=== PATIENT | male | born 1950 ===

== ENCOUNTER 2018-01-13 06:48 | Day surgery (SDC) | payer MEDICARE ==
--- NOTE | 2018-01-11 20:43 | HP ---
CC: Dr. Ruiz * HISTORY AND PHYSICAL: DATE OF PLANNED ADMISSION AND SURGERY: 01/13/18 HISTORY OF PRESENT ILLNESS: Mr. Schwartz is a 67-year-old white male who is admitted with distal left ureteral calculus for cystoscopy, left ureteroscopy, laser lithotripsy, and left ureteral stent insertion. Mr. Schwartz had past history of renal calculus disease and back in 1999, he required a left ureteroscopy and laser lithotripsy for a 7 mm proximal ureteral calculus. He was doing fine until about 6 weeks ago, when he presented to the emergency room in [place] with symptoms of left renal colic. He was noted on CT to have a 7 mm calculus at the left ureteropelvic junction. He was taken to the operating room where he underwent a left ureteroscopy, laser lithotripsy, and ureteral stent placement. The stent was removed 3 weeks later. He presented back to the emergency room at [place] with symptoms of left renal colic and had a CT, which showed a 4 mm calculus in the distal left ureter associated with moderate hydronephrosis. He was advised admission, however, the patient preferred to manage conservatively. He presented to my office last week, where he had a renal ultrasound which showed moderate left hydronephrosis and hydroureter and there was a 4 mm calculus still in the distal left ureter. Conservative management was continued. The pain kept recurring; however, it was manageable. The patient; however, was feeling very tired from the condition. He was again evaluated in my office this week and left renal ultrasound continued to show moderate left hydronephrosis and hydroureter and the stone was still in the same location in the distal left ureter. Because of the length of time the stone has been in the same location, the persistent moderate hydronephrosis and especially the feeling of fatigue that the patient has been having and after discussing the options, the patient wants to proceed with endoscopic stone extraction. PAST MEDICAL HISTORY AND SYSTEM REVIEW: He is generally healthy. He is hypertensive and maintained on lisinopril 20 mg daily. MEDICATIONS: He is on no other chronic medications. ALLERGIES: He reports being allergic to SULFA drugs that gives him hives. He denies any cardiac or pulmonary diseases or symptoms. 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 PHYSICAL EXAMINATION GENERAL: Pleasant, healthy and fit-looking white male. VITAL SIGNS: Blood pressure 120/80, pulse of 80. HEART: Regular and rhythmic. No murmurs. LUNGS: Clear. ABDOMEN: Soft. No masses, no tenderness. There is mild left CVA tenderness. IMPRESSION: Persistent 4 mm distal left ureteral calculus with hydronephrosis and on and off episodes of left flank pain. PLAN: Considering the duration of time the stone has been in the same location and the associated symptoms, plan is for left ureteroscopy, laser lithotripsy and left ureteral stent placement. I discussed the above plans with the patient. All his questions were answered. [id number]/CPS #: [id number] SHANELLE
[~2018-01-13 06:48] MED LIST: Buffered Lidocaine 0.9% SYRIN* 5 ML/SYR SYRINGE INTRADERM ONE
[2018-01-13] MEDS ORDERED: cefTRIAXone(*) 2 GM ADDV.VIAL IVPB ONE (07:18)
[2018-01-13] MEDS ORDERED: Iohexol 180 (CONTRAST) 10 ML SDV IV ONE (08:15)
[2018-01-13] MEDS ORDERED: fentaNYL* 50 MCG/ML 2 ML VIAL (100 MCG VIAL) ONE (08:34)
[2018-01-13] MEDS ORDERED: Naloxone* 0.4 MG/ML 1 ML VIAL IV PRN (09:02)
[2018-01-13] MEDS ORDERED: Acetaminophen TAB* 325 MG PO PRN (09:02)
[2018-01-13] MEDS ORDERED: fentaNYL* 50 MCG/ML 2 ML VIAL (100 MCG VIAL) IV PRN (09:02)
[2018-01-13] MEDS ORDERED: Lidocaine 2% PF * 5 ML VIAL ONE (09:14)
[2018-01-13] MEDS ORDERED: Propofol* 10 MG/ML 20 ML BTL IV PUSH ONE (09:14)
[2018-01-13 10:08] VITALS: BP 161/91
--- NOTE | 2018-01-13 10:09 | RAD ---
INDICATION: Left ureteral stent insertion COMPARISONS: September 13, 2005 TECHNIQUE: Fluoroscopy was provided for a retrograde pyelogram and stent placement. Total fluoroscopy time is: 12 seconds FINDINGS: Contrast is noted within the renal collecting system which is mildly dilated. A left ureteral stent is noted. IMPRESSION: FLUOROSCOPY WAS PROVIDED FOR A RETROGRADE PYELOGRAM AND STENT PLACEMENT CPT II Codes: G9500
--- NOTE | 2018-01-13 11:37 | OP ---
CC: Dr. Ruiz OPERATIVE REPORT: DATE OF OPERATION: 01/13/18 DATE OF : 50 SURGEON: Arnoldo Goodwin MD ANESTHESIOLOGIST: Dr. Julius Hunter ANESTHESIA: General. PRE-OP DIAGNOSES: 1. Distal left ureteral calculus. 2. Left hydronephrosis due to distal left ureteral calculus. POST-OP DIAGNOSES: 1. Impacted distal left ureteral stone fragments. 2. Left hydronephrosis due to impacted distal left ureteral stone fragments. OPERATIVE PROCEDURE: 1. Cystoscopy. 2. Left ureteroscopy and pyeloscopy. 3. Extraction of distal left ureteral stone fragments. 4. Left retrograde pyelography and placement of left ureteral stent (6-Monegasque). INDICATION FOR PROCEDURE: Mr. Schwartz is a 67-year-old white male who underwent a left ureteroscopy and laser lithotripsy of an impacted 7-mm calculus at the ureteropelvic junction in [place] about 6 weeks ago. Following removal of the stent 3 weeks later, he developed left renal colic and was noted to have a 4-mm calculus in the distal left ureter associated with hydronephrosis. He was managed conservatively; however, he continued to be symptomatic. Renal and full bladder ultrasound continued to show moderate left hydronephrosis and a 4-mm stone in the distal left ureter. Because of the above history and findings, the patient is admitted for the above procedure. PATHOLOGY AT CYSTOSCOPY: The penile and bulbar urethrae looked normal. The prostatic urethra measured 3 cm in length and there was moderate degree of obstruction by prostate enlargement with a prominent median lobe. The prostatic urethra was vascular and bled easily to instrumentation. Examination of the bladder showed moderate diffuse trabeculations. No suspicious bladder lesions were seen. The ureteral orifices looked normal. Upon left ureteroscopy, multiple stone fragments measuring between 1 and 2 mm were noted in the distal ureter. They were impacted. There was a significant degree of edema of the adjacent ureteral mucosa. The ureter proximal to the calculi was dilated. No other calculi were seen in the ureter or in the renal pelvis. Left retrograde pyelography showed moderate left hydroureteronephrosis. DESCRIPTION OF PROCEDURE: After successful general anesthesia, the patient was placed in the lithotomy position and was prepped and draped for a cystoscopy. Cystoscopy was performed, the bladder was inspected, and the above findings were noted. A flexible-tip guidewire was then introduced into the left orifice. There was initial resistance to the introduction of the wire in the distal ureter at the level of the stone. Following introduction of the wire into the renal pelvis, there was a gush of concentrated-looking urine. A 6.5 Fr semirigid tapered ureteroscope was then introduced inside the bladder. A flexible-tip spiral basket was introduced through the port of the ureteroscope and the flexible tip was introduced into the left ureter alongside the guidewire. That allowed the atraumatic introduction of the ureteroscope into the ureter. Slight narrowing was noted just distal to the calculus and that was easily negotiated with ureteroscope. The stone fragments were then visualized. They were manipulated and they were then extracted with the basket. The ureteroscope was then introduced all the way into the proximal ureter and into the renal pelvis and no additional stone fragments were noted. After a final inspection, which showed no evidence of ureteral injury and no residual stone fragments, the ureteroscope was removed. The cystoscope was re- introduced over the guidewire. Retrograde pyelography was performed. A size 6 - Monegasque stent was then placed with the proximal end-coiling in renal pelvis and the distal end-coiling inside the bladder. There was good drainage of contrast from the kidney and no extravasation. The bladder was then irrigated and the stone fragments were evacuated and sent for stone analysis. The cystoscope was then removed. A size 16-Monegasque Hwang catheter was passed inside the bladder. Rectal examination was then performed showing an enlarged but non-suspicious prostate. The patient tolerated the procedure well and left the operating room in good condition. The plan is to keep the stent in place for 1 week, it will be removed in the office under local anesthesia. [id number]/[facility] #: [id number] [facility] NYACK HOSPITALLeticia
== END 2018-01-13 10:40 | disposition home or self-care (01) ==
LOC: OR 06:48
PROVIDERS: ATTEND Urology
DX: N13.2 Hydronephrosis with renal and ureteral calculous obstruction (principal); I10 Essential (primary) hypertension; N40.0 Benign prostatic hyperplasia without lower urinary tract symptoms
CPT/HCPCS: 74420; 82365; 88300; C1876; J0696; J2704; J3010

== ENCOUNTER → 2018-02-22 06:17 | Day surgery (SDC) | payer MEDICARE ==
--- NOTE | 2018-02-20 22:03 | HP ---
CC: Dr. Ruiz * HISTORY AND PHYSICAL: DATE OF PLANNED ADMISSION AND SURGERY: 02/22/18 HISTORY OF PRESENT ILLNESS: Mr. Schwartz is a 67-year-old white male who is admitted with left hydroureteronephrosis, suspected distal left ureteral stricture for cystoscopy, left ureteroscopy, balloon dilation, and left ureteral stent insertion. Mr. Schwartz history goes back to mid October 2017 when he started having recurrent episodes of left flank pain. He presented 2 weeks later to the [facility] at [place], [place] with symptoms of left renal colic. Non- contrast CT of the abdomen and pelvis showed a 7 mm calculus at the left ureterovesical junction. On 11/24/17, he underwent a left ureteroscopy, laser lithotripsy, and left ureteral stent placement. The stent was kept for 3 weeks, and was then removed. About 3 days later, he presented back to the emergency room at [place] with recurrent symptoms of left renal colic. Noncontrast CT showed 4 mm calculus in the distal left ureter associated with moderate left hydroureteronephrosis. He was advised to undergo Lt ureteroscopy, but he decided on conservative management. He presented to my office for evaluation and management.Renal ultrasound showed moderate left hydroureteronephrosis and a 4 mm calculus in the distal left ureter. He was taken to the operating room at [facility] on 01/13/18. He underwent a left ureteroscopy, which showed several stone fragments measuring between 1 to 2 mm each, impacted in the distal left ureter, just proximal to the UVJ. There was also noted a significant degree of edema and hyperemia of the adjacent ureteral mucosa. All the visualized stone fragments were extracted. No other calculi were noted in the proximal ureter. There was no evidence of ureteral injury from the ureteroscopy. He had placement of a left ureteral stent. The stent was removed in the office a week later. He was doing fine and has been asymptomatic except for some urgency and frequency, but no flank pain, and no recurrent renal colics. He presented to the office for his follow-up evaluation. Renal and full bladder ultrasound were obtained showing mild to moderate left hydroureteronephrosis all the way to the level of the ureterovesical junction. No calculi were seen by ultrasound. There were decreased left ureteral jets. Lab work showed a serum creatinine of 1.4. With the above findings and the concern that the patient is developing a left ureteral stricture, the patient is admitted for the above procedure. PAST MEDICAL HISTORY AND SYSTEM REVIEW: He is hypertensive, maintained on lisinopril 20 mg daily. He is otherwise in excellent health. He is no other chronic medications. He denies any cardiac or pulmonary diseases or symptoms. ALLERGIES: He reports being allergic to SULFA drugs that gives him hives. 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 He is a nonsmoker. PHYSICAL EXAMINATION GENERAL: Pleasant, healthy, and fit-looking white male, who is in no pain. VITAL SIGNS: Blood pressure 140/80, pulse of 78. LUNGS: Clear. HEART: Regular and rhythmic. No murmurs. ABDOMEN: Soft. No masses, no tenderness and no CVA tenderness. IMPRESSION: Status post left ureteroscopies for distal left ureteral calculus with recurrent left hydroureteronephrosis with the obstruction at the level of the ureterovesical junction caused likely by a ureteral stricture, versus residual ureteral calculus. PLAN: Plan is for cystoscopy, left ureteroscopy, balloon dilation of distal ureter and placement of left ureteral stent. I discussed the above plans with the patient. All his questions were answered. The patient understands that ureteral strictures might recur and he might need more procedures in the future to correct the condition. [id number]/CPS #: [id number] SHANELLE
[~2018-02-22 06:17] MED LIST changes: +Acetaminophen TAB* 325 MG PO PRN; +EPHEDrine (Pressors)* 50 MG/ML VIAL ONE; +Iohexol 180 (CONTRAST) 10 ML SDV IV ONE; +Lidocaine 2% PF * 5 ML VIAL ONE; +Naloxone* 0.4 MG/ML 1 ML VIAL IV PRN; +Propofol* 10 MG/ML 20 ML BTL IV PUSH ONE; +cefTRIAXone(*) 2 GM ADDV.VIAL IVPB ONE; +fentaNYL* 50 MCG/ML 2 ML VIAL (100 MCG VIAL) ONE; +oxyCODONE TAB* 5 MG TAB PO PRN
[2018-02-22 09:25] VITALS: BP 135/81
--- NOTE | 2018-02-22 09:25 | RAD ---
Indication: LEFT stent replacement; LEFT ureteral balloon dilatation. LEFT retrograde pyelogram. Comparison: January 13, 2018 Technique: 23 seconds fluoroscopy. Multiple spot images obtained. Report: LEFT retrograde pyelogram documents moderately severe calyceal blunting. LEFT ureteral balloon dilatation documented. LEFT ureteral stent placed. IMPRESSION: Procedural fluoroscopy. CPT II Codes: G9500
--- NOTE | 2018-02-23 07:03 | OP ---
DATE OF OPERATION: 02/22/18 - [facility] DATE OF : 50 SURGEON: Arnoldo Goodwin MD ANESTHESIOLOGIST: Julius Hunter MD ANESTHESIA: General. PRE-OP DIAGNOSES: 1. Distal left ureteral obstruction. 2. Left hydroureteronephrosis due to above. POST-OP DIAGNOSES: 1. Edema and early stricture formation of distal left ureter (ureterovesical junction). 2. Left hydroureteronephrosis due to above. OPERATIVE PROCEDURE: 1. Cystoscopy. 2. Left retrograde pyelography. 3. Left ureteroscopy and pyeloscopy. 4. Balloon dilation of distal left ureteral stricture. 5. Placement of left ureteral stent (black silicone, 24 cm, 8.5-Ecuadorean). INDICATIONS: Mr. Schwartz is a 67-year-old white male, who underwent a left ureteroscopy and laser lithotripsy of a 7-mm left ureteral calculus, at the [facility] in [place], 3 months ago. He had a stent placed for 3 weeks. Following removal of the stent, he developed symptoms of left renal colic. He was worked up and was noted to have a 4-mm distal left ureteral calculus associated with left hydroureteronephrosis. On 01/13/18, he underwent a left ureteroscopy at [facility]. The operative findings were edema and hyperemia of the distal left ureter at the ureterovesical junction level and there were 3 to 4 small stone fragments, each measuring 1 to 2 mm in size. All the fragments were extracted and he had a placement of a left ureteral stent. The stent was kept in place for 1 week and was removed. On a recent followup renal ultrasound, moderate left hydroureteronephrosis was noted and the serum creatinine was 1.4. Because of that finding, the patient is taken to the operating room today for left ureteroscopy. PATHOLOGY AT CYSTOSCOPY: The penile and bulbar urethrae looked normal. The prostatic urethra measured about 2.5 cm in length and there was moderate degree of obstruction by prostate enlargement. Examination of the bladder showed normal bladder mucosa and right ureteral orifice. There was [id number]-lcfgjtpa edema noted at the level of the left orifice. Upon left retrograde pyelography, there was moderate left hydroureteronephrosis with the obstruction at the ureterovesical junction. Upon left ureteroscopy, there was edema and hyperemia and early scar formation in the distal ureter at the UVJ level, consistent with the site of the obstruction noted on retrograde study. No stone fragments were seen in the distal ureter. Ureteroscopy into the proximal ureter and the renal pelvis showed a dilated ureter, normal ureteral mucosa, and no calculi were seen. At balloon dilation, there was no waisting noted after fully inflating the dilating balloon. DESCRIPTION OF PROCEDURE: After successful general anesthesia, the patient was placed in the lithotomy position, and was prepped and draped for a cystoscopy. Cystoscopy was performed. The bladder was carefully inspected and the above findings were noted. A hybrid guidewire was then introduced into the left orifice and positioned without difficulty inside the collecting system. An open-ended catheter was then fed on top of the guidewire and positioned in the distal ureter. Retrograde pyelography was then performed demonstrating the pathology and demonstrating the level of the narrowing at the UVJ level. The guidewire was then replaced. A size 6.5 semi-rigid ureteroscope was then introduced inside the bladder. A flexible-tip basket was then introduced into the port of the ureteroscope and the flexible tip was then passed inside the left ureter alongside the guidewire. That allowed the atraumatic introduction of the ureteroscope inside the ureter. The pathology at the UVJ was noted, namely early scarring, edema, and partial narrowing of a the ureter at the UVJ. Ureteroscopy was then continued all the way into the whole ureteral lumen and inside the renal pelvis. No pathology was noted besides the dilated system, in particular there were no residual stone fragments noted in the whole ureter or at the level of the ureterovesical junction. The ureteroscope was the removed keeping the guidewire in place. The cystoscope was then reintroduced over the guidewire and positioned in the bladder. An 18-Ecuadorean balloon dilator was then fed over the guidewire and positioned inside the ureter with its distal end just distal to the orifice. The balloon was then gently inflated with contrast. There was initial minimal waisting noted in the distal ureter, but that easily opened up and the balloon was kept dilated for 2 to 3 minutes. It was then deflated and the balloon dilator was removed keeping the guidewire in place. A black silicone stent, 8.5-Ecuadorean, 24 cm long was then fed on top of the guidewire and positioned with the proximal end coiling in an upper pole infundibulum and the distal end coiling inside the bladder. There was good drainage of contrast from the kidney and no extravasation. The bladder was emptied and the cystoscope was removed. The patient tolerated the procedure well and left the operating room in good condition. The cause of the distal ureteral obstruction and hydroureteronephrosis is a combination of edema of the distal ureter and early stricture formation. The plan is to leave the stent in place for 4 to 5 weeks. It will be removed in the office under local anesthesia. He will need close followup afterwards to confirm no recurrence of the stricture. [id number]/[facility] #: [id number] MTDD
== END | disposition home or self-care (01) ==
LOC: OR 06:17
PROVIDERS: ATTEND Urology
DX: N13.1 Hydronephrosis with ureteral stricture, not elsewhere classified (principal); Z87.442 Personal history of urinary calculi; I10 Essential (primary) hypertension; N40.0 Benign prostatic hyperplasia without lower urinary tract symptoms
CPT/HCPCS: 74420; C1876; J0696; J2704; J3010